=== PATIENT | male | born 1970 | race Caucasian/White ===

== ENCOUNTER 2021-07-19 16:54 | Emergency (ER) | payer BC ==
[~2021-07-19 16:54] MED LIST: OMEPRAZOLE20 M1 PO; PERCOCET 5-3251 EACH PO
[2021-07-19 18:37] LABS: HEMOGLOBIN 14.3 gm/dl (14.0-17.5); RED BLOOD COUNT 4.35 M/UL (4.20-5.50); WHITE BLOOD COUNT 5.4 K/UL (4.5-11.0)
[2021-07-19 19:08] LABS: BUN/CREATININE RATIO 21 (0-10)
[2021-07-19] MEDS ORDERED: ZOFRAN ODT 4 MG4 MG PO (20:58)
[2021-07-19] MEDS ORDERED: LODINE CAP 300300 MG PO (20:58)
== END 2021-07-19 21:08 | disposition home or self-care (01) ==
LOC: ER1 16:54
PROVIDERS: Physician Assistant Medical
DX: R10.31 Right lower quadrant pain (principal); R31.9 Hematuria, unspecified; R10.813 Right lower quadrant abdominal tenderness
CPT/HCPCS: 80053; 81001; 85025; 99284

== ENCOUNTER 2021-10-13 16:40 | Emergency (ER) | payer SELFPAY ==
[~2021-10-13 16:40] MED LIST changes: +LODINE CAP 300300 MG PO; +ZOFRAN ODT 4 MG4 MG PO
[2021-10-13] MEDS ORDERED: PERCOCET 5/325 T1 EA PO (20:49)
[2021-10-13] MEDS ORDERED: OMNICEF 300 MG300 MG PO (20:49)
== END 2021-10-13 21:25 | disposition home or self-care (01) ==
LOC: ER1 16:40
DX: N45.1 Epididymitis (principal)
CPT/HCPCS: 76870; 81001; 96372; 99284; J0696; J1885